=== PATIENT | female | born 2000 | race American Indian/Alaskan Native ===

== ENCOUNTER 2022-05-09 08:21 | Emergency (ER) | payer MEDICAID ==
[2022-05-09 08:46] VITALS: BP 108/65; PULSE 98
[2022-05-09 09:10] LABS: ANION GAP 14.7 mEq/L (7-13)
[2022-05-09 09:16] LABS: AMPHETAMINES,URINE NEGATIVE (NEGATIVE); BARBITURATES,URINE NEGATIVE (NEGATIVE); BENZODIAZEPINE,URINE NEGATIVE (NEGATIVE); MDMA (ECSTASY), URINE NEGATIVE (NEGATIVE); METHADONE,URINE NEGATIVE (NEGATIVE); METHAMPHETAMINES,URINE NEGATIVE (NEGATIVE); OPIATES,URINE NEGATIVE (NEGATIVE); OXYCODONE,URINE NEGATIVE (NEGATIVE); PHENCYCLIDINE,URINE NEGATIVE (NEGATIVE); TCA,URINE NEGATIVE (NEGATIVE)
[2022-05-09] MEDS ORDERED: Iopamidol 612 MG/ML 100 ML Bottle IVPUSH ONE (09:22)
[2022-05-09] MEDS ORDERED: HYDROmorphone 0.5 MG/0.5 ML Syringe IVPUSH ONE (09:24)
[2022-05-09] MEDS ORDERED: Phenazopyridine 95 MG Tab PO ONE (10:47)
[2022-05-09] MEDS ORDERED: cefTRIAXone 2 GM in Sodium Chloride 0.9% 100 ML IV ONE (10:47)
== END 2022-05-09 11:15 | disposition home or self-care (01) ==
LOC: DL.ED 08:21
DX: N30.01 Acute cystitis with hematuria (principal); J45.909 Unspecified asthma, uncomplicated
CPT/HCPCS: 36415; 74177; 80053; 80143; 80179; 80305; 80307; 81001; 81025; 82150; 83605; 83690; 83735; 85025; 87086; 87088; 87186; 96365; 96375; 99284; A9270; J0696; J1170; Q9967